=== PATIENT | male | born 1985 | race Two or more races ===

== ENCOUNTER 2020-02-01 03:24 | Emergency (ER) | payer MEDICARE, OTHER ==
[~2020-02-01] VITALS: Ht 170.2 cm; Wt 70.3 kg
[2020-02-01 03:31] VITALS: BP 112/70
== END 2020-02-01 04:11 | disposition home or self-care (01) ==
LOC: ER 03:32
DX: M25.571 Pain in right ankle and joints of right foot (principal); G89.29 Other chronic pain; R22.41 Localized swelling, mass and lump, right lower limb; F43.10 Post-traumatic stress disorder, unspecified; Z98.890 Other specified postprocedural states

== ENCOUNTER 2020-03-04 11:36 | Emergency (ER) | payer MEDICARE, OTHER ==
[~2020-03-04] VITALS: Ht 170.2 cm; Wt 68.0 kg
--- NOTE | 2020-03-04 12:00 | NUR ---
BIB [employer] FOR RT ANKLE INJURY + DEFORMITY. PT AGITATED REFUSED TO GO ON WHEELCHAIR. PT AMB TO BED 15 ESCORTED BY [employer] OFFICERS. PATIENT A/OX4, UNCOOPERATIVE. NO DISTRESS NOTED.
[2020-03-04] MEDS ORDERED: HALOPERIDOL LACTATE INJ 5 MG/ML VIAL ONE (13:19)
[2020-03-04] MEDS ORDERED: diphenhydrAMINE HCL 50 MG/ML VIAL ONE (13:19)
[2020-03-04] MEDS ORDERED: LORAZEPAM INJ 2 MG/ML VIAL ONE (13:20)
[2020-03-04] MEDS: diphenhydrAMINE HCL 50 MG/ML VIAL IM ONE (13:33)
[2020-03-04] MEDS: HALOPERIDOL LACTATE INJ 5 MG/ML VIAL IM ONE (13:33)
[2020-03-04] MEDS: LORAZEPAM INJ 2 MG/ML VIAL IM ONE (13:33)
[2020-03-04 13:36] LABS: BASOPHILS # (AUTO) 0.1 /CMM (0.0-0.2); BASOPHILS % (AUTO) 0.7 % (0.0-2.0); HEMATOCRIT 44 % (39-51); HEMOGLOBIN 14.4 g/dL (13.5-17.5); LYMPHOCYTES # (AUTO) 1.6 /CMM (0.8-4.8); LYMPHOCYTES % (AUTO) 19.9 % (20.0-44.0); MEAN CORPUSCULAR HGB CONC 33 g/dl (31.0-36.0); MEAN CORPUSCULAR VOLUME 86 fL (80-96); MONOCYTES # (AUTO) 0.7 /CMM (0.1-1.30); MONOCYTES % (AUTO) 8.9 % (2.0-12.0); NEUTROPHILS # (AUTO) 4.8 /CMM (1.8-8.9); NEUTROPHILS % (AUTO) 59.5 % (43.0-81.0); PLATELET COUNT (AUTO) 316 /CMM (150-450); RED BLOOD CELL COUNT(AUTO) 5.18 MIL/uL (4.5-6.0); WHITE BLOOD COUNT (AUTO) 8.1 K/uL (4.3-11.0)
[2020-03-04 13:44] LABS: CALCIUM, SERUM 9.4 mg/dL (8.5-10.1); CARBON DIOXIDE 31 mmol/L (21-32); CHLORIDE 102 mmol/L (98-107); CREATININE 1.1 mg/dL (0.6-1.3); GLUCOSE 85 mg/dL (74-106); POTASSIUM 3.6 mmol/L (3.5-5.1); SODIUM SERUM 140 mmol/L (136-145); UREA NITROGEN, BLOOD 16 mg/dL (7-18)
[2020-03-04 13:49] LABS: ALANINE AMINOTRANSFERASE 13 U/L (12-78); ALBUMIN 3.9 g/dL (3.4-5.0); ALKALINE PHOSPHATASE 82 U/L (46-116); ASPARTATE AMINOTRANSFERASE 23 U/L (15-37); BILIRUBIN,DIRECT 0.2 mg/dL (0.0-0.2); BILIRUBIN,TOTAL 0.8 mg/dL (0.2-1.0); SALICYLATE 3.3 mg/dL (2.8-20.0)
[2020-03-04 13:50] LABS: ACETAMINOPHEN 0 ug/ml (10-30); ALCOHOL, BLOOD < 3 mg/dL (0-0)
--- NOTE | 2020-03-04 14:43 | NUR ---
PAGED [facility] FOR CONSULT
--- NOTE | 2020-03-04 15:54 | NUR ---
CALLED [facility]
[2020-03-04] MEDS ORDERED: DIVA500T2 PO (16:10)
--- NOTE | 2020-03-04 17:51 | NUR ---
PATIENT A/OX4, COOPERATIVE AT THIS TIME, BREATHING EVEN AND UNLABORED, NO SOB NOTED, NO DISTRESS NOTED. Patient given written and verbal discharge instructions. Patient verbalizes understanding of instructions. Patient is ambulatory with steady gait. Refuses offer of half-way placement. Patient given list of available shelters in surrounding area.
[2020-03-04 17:56] VITALS: BP 139/95
== END 2020-03-04 18:11 | disposition home or self-care (01) ==
LOC: ER 11:37
DX: S82.291D Other fracture of shaft of right tibia, subsequent encounter for closed fracture with routine healing (principal); S82.491D Other fracture of shaft of right fibula, subsequent encounter for closed fracture with routine healing; F23 Brief psychotic disorder; F43.10 Post-traumatic stress disorder, unspecified; Z98.890 Other specified postprocedural states; Z79.899 Other long term (current) drug therapy; X58.XXXD Exposure to other specified factors, subsequent encounter
CPT/HCPCS: 36415; 73610; 80048; 80076; 80307; 80329; 85025; 99284; G0480; J1200; J1630; J2060

== ENCOUNTER 2020-07-16 22:52 | Emergency (ER) | payer MEDICARE, OTHER ==
[~2020-07-16] VITALS: Ht 162.6 cm; Wt 63.5 kg
[~2020-07-16 22:52] MED LIST: DIVA500T2 PO
--- NOTE | 2020-07-16 23:07 | NUR ---
[facility].DROWSY, RESPONSIVE VERBALLY. BROUGHT IN FOR OVERDOSE. PER REPORT, PT WAS FOUND UNCONSCIOUS WITH PINPOINT PUPILS. UPON PARAMEDICS ARRIVAL, PT WAS GIVEN NARCAN 4MG IV THEN PT AWOKEN. PT THOUGHT HE WAS SNORTING COCAINE. PT IS SATTING @ 98% ON RA. MD WAS AT THE BEDSIDE FOR EVAL. WILL CONTINUE TO MONITOR
[2020-07-17] MEDS ORDERED: NALO4SPR NS (02:33)
--- NOTE | 2020-07-17 04:55 | NUR ---
Patient discharged to home in stable condition. Written and verbal after care instructions given. Patient verbalizes understanding of instruction.
[2020-07-17 05:09] VITALS: BP 140/81
== END 2020-07-17 05:09 | disposition home or self-care (01) ==
LOC: ER 22:54
DX: T40.601A Poisoning by unspecified narcotics, accidental (unintentional), initial encounter (principal); F43.10 Post-traumatic stress disorder, unspecified; Z98.890 Other specified postprocedural states; Z79.899 Other long term (current) drug therapy; Y92.89 Other specified places as the place of occurrence of the external cause

== ENCOUNTER 2023-01-27 13:49 | Inpatient (IN) | payer MEDICARE, OTHER ==
[~2023-01-27] VITALS: Ht 162.6 cm; Wt 58.1 kg
[~2023-01-27 13:49] MED LIST changes: +NALO4SPR NS
[2023-01-27] MEDS ORDERED: VANCOMYCIN 1 GM /D5W 250 ML PB IV ONE ×2 (14:23→23:08)
[2023-01-27] MEDS ORDERED: KETOROLAC TROMETHAMINE INJ 30 MG/ML VIAL ONE (14:24)
[2023-01-27] MEDS ORDERED: KETOROLAC TROMETHAMINE INJ 30 MG/ML VIAL IM ONE (14:30)
[2023-01-27] MEDS ORDERED: VANCOMYCIN HCL 1.25 GM in IV D5W 260 ML IV ONE (14:30)
[2023-01-27 15:07] LABS: EOSINOPHILS # (AUTO) 0.2 K/uL (0.0-0.7); EOSINOPHILS % (AUTO) 5.8 % (0.0-6.0); HEMATOCRIT 40 % (39-51); HEMOGLOBIN 12.7 g/dL (13.5-17.5); LYMPHOCYTES # (AUTO) 0.7 K/uL (0.8-4.8); LYMPHOCYTES % (AUTO) 18.4 % (20.0-44.0); MEAN CORPUSCULAR HEMOGLOBIN 27 PG (26.0-33.0); MEAN CORPUSCULAR HGB CONC 32 g/dl (31.0-36.0); MEAN CORPUSCULAR VOLUME 83 fL (80-96); MONOCYTES # (AUTO) 0.6 K/uL (0.1-1.30); MONOCYTES % (AUTO) 15.1 % (2.0-12.0); NEUTROPHILS # (AUTO) 2.4 K/uL (1.8-8.9); NEUTROPHILS % (AUTO) 59.7 % (43.0-81.0); PLATELET COUNT (AUTO) 299 K/uL (150-450); RED BLOOD CELL COUNT(AUTO) 4.78 MIL/uL (4.5-6.0); RED CELL DISTRIBUTION WIDTH 13.5 % (11.5-15.0)
[2023-01-27 15:14] LABS: CREATININE 0.8 mg/dL (0.6-1.3); POTASSIUM 3.5 mmol/L (3.5-5.1)
[2023-01-27 15:32] LABS: ALBUMIN 3.3 g/dL (3.4-5.0); BILIRUBIN,TOTAL 0.2 mg/dL (0.2-1.0); TOTAL PROTEIN, SERUM 8.1 g/dL (6.4-8.2)
[2023-01-27] MEDS ORDERED: ALBU18HF2 INH (16:48)
[2023-01-27] MEDS ORDERED: FLUT1DIS3 INH (16:48)
[2023-01-27] MEDS ORDERED: HYDR-3972 PO (16:48)
[2023-01-27 19:10] LABS: EOSINOPHILS % (MANUAL) 6 % (0-4); LYMPHOCYTES % (MANUAL) 24 % (16-48); MONOCYTES % (MANUAL) 10 % (0-11.0); NEUTROPHILS % (MANUAL) 60 (42-76)
[2023-01-27 19:11] LABS: ANISOCYTOSIS 1+; PLATELET ESTIMATE ADEQUATE
[2023-01-27 19:38] LABS: ERYTHROCYTE SEDIMENTATION RATE 40 MM/HR (0-15)
[2023-01-27 20:45] VITALS: BP 101/58; TEMP 98.4; O2SAT 98
[2023-01-27] MEDS ORDERED: HYDROCODONE/APAP 5/325MG TABLET PO PRN (22:00)
[2023-01-27] MEDS ORDERED: ONDANSETRON HCL/PF 4 MG/2 ML VIAL IVP PRN (22:00)
[2023-01-27] MEDS ORDERED: ACETAMINOPHEN 325 MG TABLET PO PRN (22:00)
[2023-01-27] MEDS: VANCOMYCIN 1 GM in IV D5W 250ml IV SCH (23:19)
[2023-01-27 23:55] VITALS: BP 101/58; TEMP 98.4; O2SAT 98
[2023-01-28] MEDS ORDERED: ALBUTEROL FS 2.5 MG/3 ML VIAL.NEB NEB PRN (00:30)
[2023-01-28] MEDS ORDERED: TEMAZEPAM 15 MG CAPSULE PO ONE (00:30)
[2023-01-28 06:24] LABS: BASOPHILS # (AUTO) 0.1 K/uL (0.0-0.2); BASOPHILS % (AUTO) 1.3 % (0.0-2.0); EOSINOPHILS # (AUTO) 0.4 K/uL (0.0-0.7); EOSINOPHILS % (AUTO) 8.5 % (0.0-6.0); HEMATOCRIT 38 % (39-51); HEMOGLOBIN 12.3 g/dL (13.5-17.5); LYMPHOCYTES # (AUTO) 1.4 K/uL (0.8-4.8); LYMPHOCYTES % (AUTO) 32.9 % (20.0-44.0); MEAN CORPUSCULAR HEMOGLOBIN 27 PG (26.0-33.0); MEAN CORPUSCULAR HGB CONC 32 g/dl (31.0-36.0); MEAN CORPUSCULAR VOLUME 83 fL (80-96); MONOCYTES # (AUTO) 0.7 K/uL (0.1-1.30); MONOCYTES % (AUTO) 17.2 % (2.0-12.0); NEUTROPHILS # (AUTO) 1.7 K/uL (1.8-8.9); NEUTROPHILS % (AUTO) 40.1 % (43.0-81.0); PLATELET COUNT (AUTO) 295 K/uL (150-450); RED BLOOD CELL COUNT(AUTO) 4.59 MIL/uL (4.5-6.0); RED CELL DISTRIBUTION WIDTH 13.5 % (11.5-15.0); WHITE BLOOD COUNT (AUTO) 4.2 K/uL (4.3-11.0)
[2023-01-28] MEDS ORDERED: VANCOMYCIN 1 GM /D5W 250 ML PB IV ONE (06:38)
[2023-01-28] MEDS: VANCOMYCIN 1 GM in IV D5W 250ml IV SCH ×3 (06:41→23:04)
[2023-01-28 06:42] LABS: CALCIUM, SERUM 8.6 mg/dL (8.5-10.1); CREATININE 0.7 mg/dL (0.6-1.3); MAGNESIUM 2.1 mg/dL (1.8-2.4); PHOSPHORUS 4.1 mg/dL (2.5-4.9); POTASSIUM 3.6 mmol/L (3.5-5.1)
[2023-01-28 08:00] VITALS: BP 106/72; TEMP 98; O2SAT 99
[2023-01-28] MEDS: FLUTICASONE/VILANTEROL 1 EACH BLST.W.DEV IH SCH (08:05)
[2023-01-28] MEDS: ENOXAPARIN SODIUM 40 MG/0.4 ML DISP.SYRIN SQ SCH ×2 (08:06→08:09)
[2023-01-28 16:00] VITALS: BP 101/69; TEMP 97.4; O2SAT 99
[2023-01-28] MEDS ORDERED: CEFTRIAXONE 1 G in IV D5W 50 ML IV SCH (19:00)
[2023-01-28 20:00] VITALS: BP 109/54; TEMP 98.6; O2SAT 97
[2023-01-28] MEDS ORDERED: TEMAZEPAM 15 MG CAPSULE PO PRN (20:00)
[2023-01-29] MEDS: VANCOMYCIN 1 GM in IV D5W 250ml IV SCH ×2 (06:23→15:00)
[2023-01-29 06:27] LABS: CALCIUM, SERUM 9.3 mg/dL (8.5-10.1); CREATININE 0.8 mg/dL (0.6-1.3)
[2023-01-29 07:00] VITALS: BP 109/67; TEMP 98.5; O2SAT 98
[2023-01-29] MEDS: ENOXAPARIN SODIUM 40 MG/0.4 ML DISP.SYRIN SQ SCH (09:00)
[2023-01-29] MEDS: FLUTICASONE/VILANTEROL 1 EACH BLST.W.DEV IH SCH (09:17)
[2023-01-29] MEDS ORDERED: NICOTINE PATCH (7MG) 7 MG PATCH.TD24 TD SCH (13:14)
[2023-01-29] MEDS ORDERED: PROSOURCE / PROSTAT (PYXIS) 30 ML UDC PO SCH (17:00)
== END 2023-01-29 15:50 | disposition left against medical advice (07) | DRG 560 ==
LOC: ER 13:56 → MED 20:19
PROVIDERS: ADMIT Nurse Practitioner Acute Care; ATTEND Internal Medicine
DX: T84.7XXA Infection and inflammatory reaction due to other internal orthopedic prosthetic devices, implants and grafts, initial encounter (principal); D68.69 Other thrombophilia; E44.1 Mild protein-calorie malnutrition; L03.115 Cellulitis of right lower limb; T84.126A Displacement of internal fixation device of bone of right lower leg, initial encounter; D64.9 Anemia, unspecified; D72.819 Decreased white blood cell count, unspecified; Z59.00 Homelessness unspecified; E88.09 Other disorders of plasma-protein metabolism, not elsewhere classified; Z99.3 Dependence on wheelchair; F43.10 Post-traumatic stress disorder, unspecified; Y83.8 Other surgical procedures as the cause of abnormal reaction of the patient, or of later complication, without mention of misadventure at the time of the procedure; W34.00XS Accidental discharge from unspecified firearms or gun, sequela; Y92.89 Other specified places as the place of occurrence of the external cause; Z68.22 Body mass index [BMI] 22.0-22.9, adult
CPT/HCPCS: 36415; 73610-TC; 80048-TC; 80053-TC; 80202-TC; 83735-TC; 84100-TC; 85025-TC; 85652-TC; 86140-TC; 87081-TC; A4223; G0378; J0696; J1650; J1885; J3370; J7030; J7050; J7060

== ENCOUNTER 2023-11-21 11:28 | Emergency (ER) | payer MEDICARE, OTHER ==
[~2023-11-21] VITALS: Ht 162.6 cm; Wt 70.8 kg
[~2023-11-21 11:28] MED LIST changes: +ALBU18HF2 INH; -DIVA500T2 PO; +FLUT1DIS3 INH; +HYDR-3972 PO; -NALO4SPR NS
[2023-11-21] MEDS ORDERED: IBUP-1955 PO (12:19)
[2023-11-21 12:34] VITALS: BP 117/69; TEMP 98; O2SAT 97
== END 2023-11-21 12:34 ==
LOC: ER 11:28
DX: M79.671 Pain in right foot (principal); F19.10 Other psychoactive substance abuse, uncomplicated
CPT/HCPCS: 73630-TC